=== PATIENT | male | born 1960 | race Caucasian/White ===

== ENCOUNTER 2021-06-01 06:40 | Outpatient (REF) | payer OTHER, SELFPAY ==
[2021-06-01 11:31] LABS: MANUAL DIFF FLAG NO
[2021-06-01 11:38] LABS: Basophils Percent Auto 0.5 % (0-2); Eosinophils Absolute Auto 0.2 X10*3/uL (0.0-0.4); Eosinophils Percent Auto 2.4 % (0-4); Hematocrit 42.8 % (42-52); Hemoglobin 14.2 g/dl (14.0-18.0); Imm Gran Abs Auto 0.02 X10*3/uL (0.00-0.03); Imm Gran Pct Auto 0.2 % (0.0-0.4); Lymphocytes Absolute Auto 2.5 X10*3/uL (1.2-4.9); Lymphocytes Percent Auto 29.5 % (20-40); Mean Corpuscular HGB Conc 33.2 g/dl (31.0-36.0); Mean Corpuscular Hemoglobin 30.1 pg (27.0-33.0); Mean Corpuscular Volume 90.7 fL (80-98); Mean Platelet Volume 11.3 fL (9.4-12.4); Monocytes Absolute Auto 0.7 X10*3/uL (0.1-1.2); Monocytes Percent Auto 7.8 % (2-11); Neutrophils Percent Auto 59.6 % (45-73); Platelet Count 236 X10*3/uL (160-400); Red Blood Count 4.72 X10*6/uL (4.60-5.80); Red Cell Distribution Width 13.1 % (11.0-16.0); White Blood Count 8.4 X10*3/uL (4.8-10.8)
[2021-06-01 12:00] LABS: Alanine Aminotransferase 31 U/L (0-40); Alkaline Phosphatase 43 U/L (39-117); Anion Gap 13 (12-20); Aspartate Amino Transferase 24 U/L (5-37); Blood Urea Nitrogen 13 mg/dL (9-16); Calcium 9.8 mg/dL (8.4-10.2); Carbon Dioxide 26 mmol/L (22-29); Chloride 104 mmol/L (96-108); Cholesterol 279 mg/dL; Estimated Glomerular Filt Rate > 60; Glucose Fasting 99 mg/dL (60-99); HDL Cholesterol 71 mg/dL; LDL Cholesterol Calculated 190 mg/dl; Potassium 4.3 mmol/L (3.3-5.1); Sodium 139 mmol/L (135-145); Total Protein 6.6 g/dL (6.5-8.0); Triglycerides 92 mg/dL
[2021-06-01 12:21] LABS: Prostate Specific Antigen 1.35 ng/mL (<0.05-4.0)
== END 2021-06-01 06:41 | disposition home or self-care (01) ==
LOC: HO.HMGCLDS 06:40
PROVIDERS: PCP Internal Medicine; Visit Provider Internal Medicine
DX: Z00.00 Encounter for general adult medical examination without abnormal findings (principal); Z12.5 Encounter for screening for malignant neoplasm of prostate
CPT/HCPCS: 36415; 80053; 80061; 84153; 85025

== ENCOUNTER → 2022-05-03 10:18 | Outpatient (BNVA) | payer OTHER, SELFPAY | PROVIDERS: PCP Internal Medicine; Visit Provider Surgery | DX: K40.91 Unilateral inguinal hernia, without obstruction or gangrene, recurrent (principal) | CPT/HCPCS: 99202 ==

== ENCOUNTER 2022-05-10 08:44 | Outpatient (REF) | payer OTHER, SELFPAY ==
[2022-05-10 11:46] LABS: MANUAL DIFF FLAG NO
[2022-05-10 11:50] LABS: Basophils Absolute Auto 0.1 X10*3/uL (0.0-0.2); Eosinophils Absolute Auto 0.1 X10*3/uL (0.0-0.4); Eosinophils Percent Auto 1.9 % (0-4); Hematocrit 40.6 % (42.0-52.0); Hemoglobin 13.9 g/dl (14.0-18.0); Imm Gran Abs Auto 0.01 X10*3/uL (0.00-0.03); Imm Gran Pct Auto 0.2 % (0.0-0.4); Lymphocytes Percent Auto 41.8 % (20-40); Mean Corpuscular HGB Conc 34.2 g/dl (31.0-36.0); Mean Corpuscular Hemoglobin 30.3 pg (27.0-33.0); Mean Corpuscular Volume 88.6 fL (80.0-98.0); Mean Platelet Volume 12.6 fL (9.4-12.4); Monocytes Absolute Auto 0.4 X10*3/uL (0.1-1.2); Monocytes Percent Auto 9.1 % (2-11); Neutrophils Absolute Auto 2.2 x10*3/uL (2.0-8.3); Platelet Count 169 X10*3/uL (160-400); Red Blood Count 4.58 X10*6/uL (4.60-5.80); Red Cell Distribution Width 12.2 % (11.0-16.0); White Blood Count 4.8 X10*3/uL (4.8-10.8)
[2022-05-10 12:33] LABS: Alanine Aminotransferase 30 U/L (0-40); Albumin Level 4.1 g/dL (3.5-5.0); Alkaline Phosphatase 41 U/L (39-117); Anion Gap 12 (12-20); Aspartate Amino Transferase 30 U/L (5-37); Bilirubin Total 0.9 mg/dL (0.0-1.0); Blood Urea Nitrogen 12 mg/dL (9-16); Calcium 9.2 mg/dL (8.4-10.2); Carbon Dioxide 24 mmol/L (22-29); Chloride 104 mmol/L (96-108); Cholesterol 220 mg/dL; Estimated Glomerular Filt Rate > 60; Glucose Fasting 102 mg/dL (60-99); HDL Cholesterol 56 mg/dL; LDL Cholesterol Calculated 149 mg/dl; Potassium 4.3 mmol/L (3.3-5.1); Sodium 136 mmol/L (135-145); Total Protein 6.4 g/dL (6.5-8.0); Triglycerides 76 mg/dL
== END 2022-05-10 08:45 | disposition home or self-care (01) ==
LOC: HO.HMGCLDS 08:44
PROVIDERS: PCP Internal Medicine; Visit Provider Internal Medicine
DX: Z00.00 Encounter for general adult medical examination without abnormal findings (principal); Z12.5 Encounter for screening for malignant neoplasm of prostate
CPT/HCPCS: 36415; 80053; 80061; 84153; 85025

== ENCOUNTER 2022-05-30 05:59 | Day surgery (SDC) | payer OTHER, SELFPAY ==
[2022-05-23 13:01] VITALS: BMI 20.6
--- NOTE | 2022-05-29 11:41 | HO.ANESPROP2 ---
Documented by User: Elizabeth Carbajal NP 05/29/22 11:42 HPI - Anesthesia Eval Consult details Narrative: 62yo M for Right Hernia Repair Inguinal Laparoscopic PMFSH Active Problems Active Problems: All Active Problems (Updated 05/03/22 @ 11:20 by Farhan Kearney MD) Recurrent right inguinal hernia (Acute) Family History Family History Mother Bladder cancer Surgical History Surgical History H/O inguinal hernia repair History of surgery on arm Hx of colonoscopy Hx of left inguinal hernia repair Social History Social History Alcohol intake: never Patient Tobacco Use Status: Never used Tobacco Use of substances other than those prescribed or required for medical reasons: No Are you DNR?: No Advance Directives: No Advance Directives Information Provided: Yes Meds Allergies Allergy/AdvReac Type Severity Reaction Status Date / Time No Known Allergies Allergy Unverified 05/23/22 12:56 Home Medications Medication Instructions Recorded Confirmed Last Taken Type No Known Home Meds 05/03/22 05/23/22 Unknown History Exam Exam Date and Time: May 29, 2022 1141 Height,Weight and Vital Signs: Height 6 ft Weight 68.946 kg Pertinent Lab Results Pertinent Lab Results: Laboratory Tests 05/10/22 05/10/22 08:50 08:50 WBC 4.8 Hgb 13.9 L Hct 40.6 L Plt Count 169 Sodium 136 Potassium 4.3 Chloride 104 Carbon Dioxide 24 BUN 12 Creatinine 0.94 Assessment and Plan Assessment Anesthesia Assessment: Chart Reviewed Documented by User: Antonio Toure MD 05/30/22 07:04 PMFSH Family History Family History Mother Bladder cancer Family history of problems with anesthesia: No Surgical History Surgical History H/O inguinal hernia repair History of surgery on arm Hx of colonoscopy Hx of left inguinal hernia repair History of Problems with Anesthesia: No Social History Social History Alcohol intake: never Patient Tobacco Use Status: Never used Tobacco Use of substances other than those prescribed or required for medical reasons: No Are you DNR?: No Advance Directives: No Advance Directives Information Provided: Yes Meds Allergies Allergy/AdvReac Type Severity Reaction Status Date / Time No Known Allergies Allergy Unverified 05/23/22 12:56 Home Medications Medication Instructions Recorded Confirmed Last Taken Type No Known Home Meds 05/03/22 05/23/22 Unknown History Exam Airway Mallampati Class: I TM Dist: >3cm Neck ROM: Full Assessment and Plan Assessment Anesthesia Assessment: Anesthesia Plan Discussed Final Anesthetic Review Family History of Problems with Anesthesia: No History of Problems with Anesthesia: No NPO: Yes ASA Class: I Final Preanesthetic Review: No Changes in Pt Med Stat, Meds/Allgs Chart Reviewed, Consent Obtained/Reviewed and Anes Risks/Benef Reviewed Patient Risk: Low Procedure Risk: Low Anesthetic Plan Anesthetic Plan: GA Disposition: Standard PACU
[2022-05-30] VITALS (14 sets, daily range): BP systolic 136–175; BP diastolic 79–88; PULSE 56–76; RESP 14–18; TEMP 36.1–36.8; O2SAT 98–100; BMI 21.7
[2022-05-30] MEDS: Lactated Ringers 1,000 ML 100 ML IVCONT (06:44)
[2022-05-30] MEDS: Heparin Sodium,Porcine 5,000 UNIT/ML VIAL 5000 UNIT SUBCUT (06:44)
--- NOTE | 2022-05-30 07:03 | MHC.SHP ---
Pre-Procedural Eval Section A Date of Service: 05/30/22 The patient is an INPATIENT: No The History & Physical has been completed within 30 days and I have reviewed it.: Yes Section B Chief Complaint: Unilateral inguinal hernia, without obstruction Allergies: Allergies Allergy/AdvReac Type Severity Reaction Status Date / Time No Known Allergies Allergy Unverified 05/23/22 12:56 Plan I have reviewed the history and physical and performed a pertinent physical examination on my patient. No changes have occurred unless specified.
--- NOTE | 2022-05-30 07:04 | W.PM.OPN ---
Operative Note Operative Note Date of Service: 05/30/22 Narrative: Preop diagnosis: [RECURRENT RIGHT INGUINAL HERNIA] Postop diagnosis: [SAME, DIRECT] Procedure: [LAPAROSCOPIC REPAIR OF RECURRENT RIGHT INGUINAL HERNIA WITH PROGRIP MESH] Surgeon: Farhan Kearney MD Assist: Becky Peralta PA-C] Anesthesia: [General; local Ropivicaine] Estimated blood loss: [3cc] Specimen: [none] Intraoperative findings: [A direct recurrent right inguinal hernia was present, reduced] Indications: [The patient is a 62-year-old gentleman who had an open mesh hernia repair and subsequent recurrence. The options regarding 2nd opinion, continued observation and repair were reviewed and apparently understood. I recommended a laparoscopic repair and reviewed the inherent risks of bleeding, infection, hernia recurrence, mesh complications that could require pain management or reoperation, the patient seemed understand his options and wanted to proceed.] Procedure: The patient was identified in the preoperative holding area by myself and the operative site marked by me confirming a RIGHT inguinal hernia. 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 The operative field hair had been clipped in preop holding. The patient was again identified in the operating suite and placed supine on the table. See anesthesia notes for full details regarding anesthesia care and management. The patient was then widely prepped and draped in the usual manner using chlorhexidine. An appropriate time-out was performed. The patient's abdomen was accessed through a supraumbilical transverse incision using preemptive local. Veress needle was placed without incident, an appropriate drop test performed and used to obtain a pneumoperitoneum of 15 mmHg using carbon dioxide. The abdomen was then accessed with a 5 mm/30 degree laparoscopic for a 5 mm optical trocar without incident. I then inspected for evidence of injury from either the Veress needle or trocar and found none. The patient was positioned in gentle Trendelenburg position and additional 5 mm trocars placed using preemptive local under direct laparoscopic vision in the patient's right and left midclavicular lines. The 5 mm supraumbilical trocar was upsized to a 12. Laparoscopy confirmed RECURRENT DIRECT INGUINAL hernia and ipsilateral peritoneal & transversalis fascia incision was made using a grasper and Endo scissors. Hemostasis was obtained with electrocautery. Dissection was then carried medially to Guillermo's ligament. Next, laparoscopic graspers and scissors were used to developed Retzius space, Bogros space and dissection carried laterally taking care to avoid nerve injury. The direct hernia sac was carefully dissected using electrocautery for hemostasis. Once the sac was reduced, dissection avoiding the triangle of pain and triangle of Doom was carried inferiorly and posteriorly to allow placement of a 10 x 15 cm ProGrip mesh. It was tacked using absorbable tacks to Guillermo's ligament. The abdomen was then deflated to 9 mmHg in the field inspected for hemostasis. Local was infiltrated into the operative field and the peritoneal flap closed with absorbable tacks. The large direct hernia sac was everted intact to cover to minor peritoneal tears. The abdomen was deflated, the bed return to neutral and trocars removed. The supraumbilical fascia was closed 0 Polysorb suture and skin was closed with 4-0 Monocryl subcuticular sutures. The abdomen was then washed and dried, and Mastisol and Steri-Strips applied followed by Band-Aids. Patient tolerated the procedure well was sent to the recovery area in stable condition. All sponge and instrument counts were correct x2. At the patient's request, I did not contact anyone to apprise them of the operation.
[2022-05-30] MEDS: oxyCODONE HCl Immed Release 5 MG TABLET PO ×2 (10:18→11:28)
[2022-05-30] MEDS: fentaNYL citrate/PF 100 MCG/2 ML VIAL 50 MCG IVPUSH ×4 (10:20→11:26)
== END 2022-05-30 13:15 | disposition home or self-care (01) ==
LOC: HO.SSS 06:00
PROVIDERS: PCP Internal Medicine; Visit Provider Surgery
PROC: (CPT 49650; principal; 2022-05-30 07:30)
DX: K40.91 Unilateral inguinal hernia, without obstruction or gangrene, recurrent (principal)
CPT/HCPCS: 49651; C1781; J0690; J1100; J2250; J2405; J2795; J3010